=== PATIENT | female | born 1955 | race Asian ===

== ENCOUNTER → 2017-08-22 | Outpatient (CLI) | payer BC ==
[~2017-08-22] MED LIST: CALCITRATE + D1 EACH PO; COZAAR50 MG PO; HAIR, SKIN AND1 EACH PO; ISENTRESS400 MG PO; MOTRIN800 MG PO; OSTEO BI-FLEX1 EAC1 PO; TESSALON PERLE100 MG PO; TRUVADA1 TABLET PO; VICODIN 5-3001 EACH PO; VITAMIN E400 UNIT PO; ZITHROMAX250 MG PO
== END | disposition home or self-care (01) ==
LOC: CDC 08-21 09:30
DX: Z01.810 Encounter for preprocedural cardiovascular examination (principal); R94.31 Abnormal electrocardiogram [ECG] [EKG]
CPT/HCPCS: 93000

== ENCOUNTER 2017-12-28 20:59 | Inpatient (IN) | payer BC, OTHER ==
[~2017-12-28] VITALS: Ht 157.5 cm; Wt 65.8 kg
[~2017-12-28 20:59] MED LIST changes: +COZAAR100 MG PO; -COZAAR50 MG PO; +NORVASC5 MG PO; +PERCOCET 5/31 TABLET PO
[2017-12-29 06:57] VITALS: BP 124/71
[2017-12-29 13:55] VITALS: BP 111/62
[2017-12-29 16:06] LABS: HEMATOCRIT 38.8 % (36.0-46.0); HEMOGLOBIN 12.9 G/DL (11.9-15.5); MCH 30.4 PG (29.0-34.0); MCHC 33.2 G/DL (30.0-36.0); MCV 91.3 FL (83-99); PLATELET COUNT 252 K/uL (156-360); RBC DIS.WIDTH-CV 12.3 % (11.8-14.6); RBC DIS.WIDTH-SD 41.1 % (39-53); RED BLOOD COUNT 4.25 M/uL (3.80-5.20); WHITE BLOOD COUNT 12.1 K/uL (4.1-10.2)
[2017-12-29 16:33] LABS: CHLORIDE 104 MEQ/L (99-109); GFR ESTIMATE (CALCULATED) > 59 mL/min/; GLUCOSE 191 mg/dL (70-99); POTASSIUM 4.2 MEQ/L (3.7-5.4); SODIUM 134 MEQ/L (136-147); UREA NITROGEN (BUN) 15 mg/dL (9-23)
[2017-12-29 19:44] VITALS: BP 123/60
[2017-12-29 23:57] VITALS: BP 120/62
[2017-12-30 03:34] VITALS: BP 119/59
[2017-12-30 06:54] LABS: HEMATOCRIT 35.2 % (36.0-46.0); HEMOGLOBIN 11.7 G/DL (11.9-15.5); MCH 30.6 PG (29.0-34.0); MCHC 33.2 G/DL (30.0-36.0); MCV 92.1 FL (83-99); PLATELET COUNT 245 K/uL (156-360); RBC DIS.WIDTH-CV 12.4 % (11.8-14.6); RBC DIS.WIDTH-SD 41.8 % (39-53); RED BLOOD COUNT 3.82 M/uL (3.80-5.20); WHITE BLOOD COUNT 11.3 K/uL (4.1-10.2)
[2017-12-30 07:18] LABS: CHLORIDE 106 MEQ/L (99-109); GFR ESTIMATE (CALCULATED) > 59 mL/min/; SODIUM 137 MEQ/L (136-147); UREA NITROGEN (BUN) 12 mg/dL (9-23)
[2017-12-30 07:32] VITALS: BP 118/67
[2017-12-30 07:32] LABS: GLUCOSE 111 mg/dL (70-99)
[2017-12-30 11:37] VITALS: BP 134/69
[2017-12-30 15:16] VITALS: BP 149/72
[2017-12-30 19:36] VITALS: BP 137/70
[2017-12-30 23:20] VITALS: BP 135/61
[2017-12-31 03:15] VITALS: BP 126/66
[2017-12-31 06:26] LABS: HEMATOCRIT 37.9 % (36.0-46.0); HEMOGLOBIN 12.4 G/DL (11.9-15.5); MCHC 32.7 G/DL (30.0-36.0); MCV 91.8 FL (83-99); PLATELET COUNT 250 K/uL (156-360); RBC DIS.WIDTH-CV 12.5 % (11.8-14.6); RBC DIS.WIDTH-SD 42.1 % (39-53); RED BLOOD COUNT 4.13 M/uL (3.80-5.20); WHITE BLOOD COUNT 10.1 K/uL (4.1-10.2)
[2017-12-31 06:58] LABS: CHLORIDE 105 MEQ/L (99-109); CREATININE 1.2 MG/DL (0.6-1.3); GFR ESTIMATE (CALCULATED) 48 mL/min/; GLUCOSE 131 mg/dL (70-99); SODIUM 140 MEQ/L (136-147); UREA NITROGEN (BUN) 13 mg/dL (9-23)
[2017-12-31 08:09] VITALS: BP 147/77
[2017-12-31] MEDS ORDERED: TRAMADOL HCL50 MG PO (09:33)
== END 2017-12-31 10:05 | disposition home or self-care (01) | DRG 742 ==
LOC: ENRESERV 20:59 → 2SOUTH 12-29 06:18 → 2EAST 12-29 13:56 → 2SOUTH 12-29 15:58 → 2EAST 12-31 10:05
PROVIDERS: Obstetrics & Gynecology Gynecologic Oncology
DX: N87.0 Mild cervical dysplasia (principal); B20 Human immunodeficiency virus [HIV] disease; K66.0 Peritoneal adhesions (postprocedural) (postinfection); I10 Essential (primary) hypertension
CPT/HCPCS: 36415; 80048; 85027; 86850; 86900; 86901; 86920; 88305; 88307; J1100; J1170; J1580; J1650; J1885; J2405; J2710; J2765; J3010; J7050; J7120; Q0175; S0030